=== PATIENT | female | born 1965 | race Caucasian/White ===

== ENCOUNTER 2020-10-13 16:54 | Emergency (ER) | payer OTHER, SELFPAY ==
[2020-10-13 17:04] VITALS: BP 114/73; PULSE 69; RESP 16; TEMP 36.4; O2SAT 97
--- NOTE | 2020-10-13 17:32 | ED.SKABFB ---
HPI - Skin/Abscess/Foreign Bdy General Chief complaint: Skin/Abscess/Foreign Body Stated complaint: rash Source: patient and RN notes reviewed Limitations: no limitations History of Present Illness HPI narrative: The patient, previously mostly healthy, presents skin eruption. Patient states she has about a week long history now of left infra-clavicular/pectoral skin eruption. Eruption is well demarcated/raised, pink, itchy, associated with tiny vesicles and discharge; and it has begun to spread. Symptoms are mild, worse with scratching. Related Data Allergies Allergy/AdvReac Type Severity Reaction Status Date / Time No Known Allergies Allergy Verified 10/13/20 17:03 Review of Systems Review of Systems: Narrative: General/Constitutional: No weight loss,fever Eyes: N0: Redness,discharge Ears/Nose/Throat: No: Epistaxis,ear discharge Respiratory: Denies: Hemoptysis Gastrointestinal: No Vomiting, Bleeding-rectal Skin: No Lumps, REPORTS eruption Neurologic: No Focal Weakness,Sz Hematologic: Denies: Petechiae/Purpura Psychiatric: No: Suicida ideationl All Other Systems: Reviewed and Negative PMFSH Past Medical History Medical History HLD (hyperlipidemia) Surgical History Surgical History Previous section Family History Family History Father Hypertension Heart disease Mother Hypertension Breast cancer Social History Social History Smoking status: Never smoker Alcohol intake: current Substance use: never Comments At time of signature, agree with nursing past medical, surgical, social and family history. There is no relevant family history pertinent to the presenting complaint Exam Narrative: Exam Narrative: General Appearance: Well nourished, Normocephalic Conjunctiva clear Mouth/Throat: Normal appearing, Supple Respiratory: Airway patent, No respiratory distress Musculoskeletal: Moves all extremities, Non tender Skin: Warm, Dry; pink, sl raised/ well-demarcated, erysipeloid like eruption of left pectoral area with a clear vesicles on surface; no abscess/induration Neurological: A&O x3 Psychiatric: Normal mood, Normal affect Course Vital Signs Vital signs: Vital Signs Temperature 97.6 F 10/13/20 17:04 Pulse Rate 69 10/13/20 17:04 Respiratory Rate 16 10/13/20 17:04 Blood Pressure 114/73 10/13/20 17:04 Pulse Oximetry 97 10/13/20 17:04 Temperature 97.6 F 10/13/20 17:04 Pulse Rate 69 10/13/20 17:04 Respiratory Rate 16 10/13/20 17:04 Blood Pressure 114/73 10/13/20 17:04 Pulse Oximetry 97 10/13/20 17:04 Discharge Plan Discharge Clinical Impression: Cellulitis Patient Disposition: Home, Self-Care Condition: Stable Instructions: Antibiotic Form, Cellulitis (ED) Additional Instructions: Take clindamycin with food, antacid and or probiotic; stop clindamycin if diarrhea happens Keep photo log of area go to hospital if not improved Prescriptions: New clindamycin HCl 300 mg capsule 300 mg PO Q6H Qty: 15 RF: 0 prednisone 20 mg tablet 60 mg PO DAILY Qty: 9 RF: 0 Follow-up/Referrals: Moira Schreiber MD [Primary Care Provider] -
== END 2020-10-13 17:45 | disposition home or self-care (01) ==
PROVIDERS: Emergency Provider Emergency Medicine; PCP Family Medicine
DX: L03.313 Cellulitis of chest wall (principal); R78.5 Finding of other psychotropic drug in blood
CPT/HCPCS: 99213; G0463